=== PATIENT | female | born 1990 | race Caucasian/White ===

== ENCOUNTER 2018-04-21 15:27 | Emergency (ER) | payer SELFPAY ==
[~2018-04-21] VITALS: Ht 157.5 cm; Wt 66.9 kg
[2018-04-21 16:55] LABS: BASOPHILS # (AUTO) 0.02 x10^3/uL (0-0.1); BASOPHILS % (AUTO) 0 % (0-1); EOSINOPHILS # (AUTO) 0.02 x10^3/uL (0-0.4); EOSINOPHILS % (AUTO) 0 % (1-7); LYMPHOCYTES # (AUTO) 1.67 x10^3/uL (1-3.4); LYMPHOCYTES % (AUTO) 31 % (22-44); MD NO; MEAN CORPUSCULAR HEMOGLOBIN 28.8 pg (27.0-34.8); MEAN CORPUSCULAR VOLUME 87.1 fL (80-100); MONOCYTES # (AUTO) 0.49 x10^3/uL (0.2-0.8); MONOCYTES % (AUTO) 9 % (2-9); NEUTROPHILS # (AUTO) 3.26 x10^3/uL (1.8-6.8); NEUTROPHILS % (AUTO) 60 % (42-75); PLATELET COUNT 295 x10^3/uL (130-400); RED BLOOD COUNT 4.67 x10^6/uL (3.82-5.3); RED CELL DISTRIBUTION WIDTH 13.9 % (9.6-15.2)
[2018-04-21 17:05] LABS: ALBUMIN 4.1 g/dL (3.4-5.0); ANION GAP 8 mmol/L (5-15); CALCIUM 8.8 mg/dL (8.5-10.1); CHLORIDE 107 mmol/L (98-107)
[2018-04-21 17:10] LABS: CREATININE 0.76 mg/dL (0.55-1.02)
--- NOTE | 2018-04-21 17:18 | NUR ---
Pt aware of need or urine sample. Pt declining ability to urinate at this time.
--- NOTE | 2018-04-21 17:27 | NUR ---
LATE NOTE ENTRY FOR 1699: Pt presents to ED with c/o "vaginal bumps and lump on left groin. The bump has been there for 5 years but it started hurting today. The bumps started today." CHRISTIANNEN. Pt connected to monitors. No needs expressed at this time. All safety measures in place. Pelvic bed in room. Pelvic cart at bedside. Call light within reach.
[2018-04-21 18:18] LABS: CULTURE INDICATED? YES; MICROSCOPIC INDICATED
[2018-04-21 18:19] VITALS: BP 114/79
--- NOTE | 2018-04-21 19:03 | NUR ---
Provided report to THIAGO James. All questions answered.
--- NOTE | 2018-04-21 19:07 | NUR ---
Patient/Caregiver given discharge instructions and they have confirmed that they understand the instructions. Patient ambulatory with steady gait.
== END 2018-04-21 19:09 | disposition home or self-care (01) ==
LOC: ED 19:05
DX: A60.04 Herpesviral vulvovaginitis (principal); R10.2 Pelvic and perineal pain
CPT/HCPCS: 36415; 80048; 81001; 82040; 84703; 85025; 87086; 99283

== ENCOUNTER 2018-05-09 09:41 | Emergency (ER) | payer SELFPAY ==
[~2018-05-09] VITALS: Ht 154.9 cm; Wt 67.0 kg
[2018-05-09] MEDS ORDERED: IBUP-1222 PO (10:22)
[2018-05-09] MEDS ORDERED: KETOROLAC 30 MG/1 ML ONE (10:39)
[2018-05-09] MEDS ORDERED: CEFTRIAXONE PMX 1GM/50ML 50 ML ONE (10:39)
[2018-05-09] MEDS ORDERED: DEXAMETHASONE 4 MG/ML, 5ML ONE (10:39)
--- NOTE | 2018-05-09 10:48 | NUR ---
PIV STARTED. NS BOLUS AND ROCEPHIN INFUSING. PATIENT HAS NO COMPLAINTS AT THIS TIME.
[2018-05-09] MEDS ORDERED: DEXAMETHASONE 10 MG in SODIUM CHLORIDE 0.9% 50 ML IV ONE (11:00)
[2018-05-09] MEDS ORDERED: KETOROLAC 30 MG/1 ML IV ONE (11:00)
[2018-05-09] MEDS ORDERED: SODIUM CHLORIDE 0.9% 1,000ML IVBOLUS ONE (11:00)
[2018-05-09] MEDS ORDERED: CEFTRIAXONE PMX 1GM/50ML 50 ML IVPB ONE (11:00)
[2018-05-09] MEDS ORDERED: SODIUM CHLORIDE FLUSH 10ML SYR IVF ONE (11:00)
[2018-05-09] MEDS ORDERED: DEXAMETHASONE 4 MG/ML, 1ML IV ONE (11:00)
[2018-05-09 11:34] VITALS: BP 106/67
== END 2018-05-09 11:50 | disposition home or self-care (01) ==
LOC: ED 10:08
DX: J02.0 Streptococcal pharyngitis (principal)
CPT/HCPCS: 96365; 96368; 96375; 99283; J0696; J1100; J1885; J7030